=== PATIENT | female | born 1955 | race Asian ===

== ENCOUNTER 2019-02-09 15:34 | Outpatient (CLI) | payer BC | END 2019-02-09 23:59 | disposition home or self-care (01) | LOC: RAD 15:34 | PROVIDERS: ATTEND Physician Assistant | DX: M19.012 Primary osteoarthritis, left shoulder (principal) ==

== ENCOUNTER → 2020-03-13 | Outpatient (CLI) | payer OTHER, MEDICARE | END | disposition home or self-care (01) | LOC: CFH 10:06 | PROVIDERS: ATTEND Nurse Practitioner Family | DX: Z12.31 Encounter for screening mammogram for malignant neoplasm of breast (principal); M81.0 Age-related osteoporosis without current pathological fracture; N95.9 Unspecified menopausal and perimenopausal disorder | CPT/HCPCS: 77063; 77067; 77080 ==

== ENCOUNTER → 2021-01-22 | Outpatient (CLI) | payer MEDICARE, OTHER | END | disposition home or self-care (01) | LOC: CFH 10:26 | PROVIDERS: ATTEND Nurse Practitioner Family | DX: M50.30 Other cervical disc degeneration, unspecified cervical region (principal); M51.37 Other intervertebral disc degeneration, lumbosacral region; M48.02 Spinal stenosis, cervical region | CPT/HCPCS: 72050; 72110 ==

== ENCOUNTER 2021-03-17 08:16 | Outpatient (CLI) | payer MEDICARE, OTHER | END 2021-03-17 23:59 | disposition home or self-care (01) | LOC: CFH 08:16 | PROVIDERS: ATTEND Nurse Practitioner Family | DX: Z12.31 Encounter for screening mammogram for malignant neoplasm of breast (principal) | CPT/HCPCS: 77063; 77067 ==